=== PATIENT | male | born 1975 | race Caucasian/White ===

== ENCOUNTER 2016-12-20 11:11 | Emergency (ER) | payer OTHER ==
--- NOTE | 2016-12-26 08:15 | ER ---
ADMIT: 12/20/2016 RM/LOC: ER [facility] MR#: [id number] [address] [id number] [place] [address] [place] [address] Emergency Room Report SEX: M AGE: 41 : 1975 DATE: 12/20/2016 A 41-year-old gentleman, who was moving furniture yesterday when he thinks he may have gotten some dust or some other debris in his left eye, he tried to rinse it out, but it has not improved overnight, subsequently comes to the Emergency Department. See T-sheet for remainder of history and physical. There is fluorescein uptake in the left eye cornea, he was diagnosed with abrasion. He was given prescription for bacitracin ophthalmic ointment. Encouraged to follow up this coming week if not better. Evelio Worley MD/ tolu JOB #: [id number] CC: Evelio Worley MD, Attending Physician
== END 2016-12-20 12:08 | disposition home or self-care (01) ==
LOC: ER 11:11
DX: S05.02XA Injury of conjunctiva and corneal abrasion without foreign body, left eye, initial encounter (principal); F17.210 Nicotine dependence, cigarettes, uncomplicated; W45.8XXA Other foreign body or object entering through skin, initial encounter